=== PATIENT | female | born 1990 | race African-American/Black ===

== ENCOUNTER 2024-10-08 07:44 | Emergency (ER) | payer OTHER, SELFPAY ==
[2024-10-08] VITALS (10 sets, daily range): BP systolic 140–215; BP diastolic 79–119; BMI 24.2
[2024-10-08 08:20] LABS: % Basophils 0.4 % (0-2); % Eosinophils 0.6 % (0-6); % Immature Granulocytes 0.2 % (0-0.5); % Lymphocytes 27.2 % (20.5-51.1); % Monocytes 5.4 % (1.7-9.3); % Neutrophils 66.2 % (42.2-75.2); Absolute Eosinophils 0.1 10^3/uL (0-0.7); Absolute Lymphocytes 2.6 10^3/uL (1.2-3.4); Absolute Monocytes 0.5 10^3/uL (0.1-0.6); Absolute Neutrophils 6.3 10^3/uL (1.4-6.5); Hematocrit 36.9 % (37.0-47.0); Hemoglobin 12.7 g/dL (12.0-16.0); Mean Corp Hgb Conc. 34.4 g/dL (33.0-37.0); Mean Corpuscular Hgb 31.3 pg (27.0-31.0); Mean Corpuscular Volume 90.9 fL (81.0-99.0); Mean Platelet Volume 11.8 fL (7.4-10.4); Nucleated Red Blood Cells % 0 %; Platelet Count 248 10^3/uL (130-400); Red Blood Cell Count 4.06 10^6/uL (4.20-5.40); Red Cell Dist. Width 12.4 % (11.5-14.5); White Blood Cell Count 9.5 10^3/uL (4.8-10.8)
--- NOTE | 2024-10-08 08:22 | ED.GENMED ---
History of Present Illness
General
Chief Complaint: Blood Pressure Problem
Source: patient
Time Seen by Provider: 10/08/24 07:48
History of Present Illness
History of Present Illness:
34-year-old female presents emergency by ambulance for evaluation of tingling in her hands and feet, rapid breathing, feeling unwell. Symptoms began after having a difficult conversation at work. Patient does have a history of hypertension for
which she takes amlodipine. She took her medication yesterday but not this morning. She states she typically takes around 8 AM. Currently denies any chest pain, shortness of breath, abdominal pain or headache.
Past History
Past History
ED Past Medical History: None
ED Past Surgical History: Other (D. and C.)
Social History
Tobacco: Non-smoker
Phy Exam
Physical Exam
Physical Exam:
General: Awake, Alert, Oriented X3. No acute distress.
Vitals: Hypertensive
Head: Atraumatic
Eyes: Pupils equal, EOMI
Throat: Airway intact, no exudates
Neck: Trachea midline
Lungs: Clear and equal b/l
Heart: Regular rate, no murmurs
Abd: Soft, Nontender, No pulsatile mass
Neuro: Cranial nerves intact, muscle strength equal bilaterally, cerebellar exam normal
Skin: Warm, dry, no rash
Extremities: pulses equal b/l, no edema
Course
Orders/Labs/Results
Orders:
Orders
10/08/24 07:45
Electrocardiogram (*1) Urgent
Reason for Study: Hypertension, Benign
10/08/24 07:46
EKG- Treatment ONCE
10/08/24 08:03
Test Result ONCE
10/08/24 08:05
Complete Blood Count/With Diff Urgent
Comprehensive Metabolic Panel Urgent
HCG, Serum Qualitative Screen Urgent
10/08/24 08:18
Amlodipine [Norvasc] 10 mg PO NOW STA
10/08/24 11:42
Acetaminophen [Tylenol] 1,000 mg PO NOW STA
10/08/24 13:08
CT Head W/o Iv Contrast Urgent
Comment:
Reason For Exam: headache
10/08/24 13:40
Diphenhydramine [Benadryl] 25 mg IV NOW STA
Metoclopramide [Reglan] 10 mg IV NOW STA
Abnormal Lab Results
10/08/24
08:05
RBC 4.06 L 10^6/uL
(4.20-5.40)
Hct 36.9 L %
(37.0-47.0)
MCH 31.3 H pg
(27.0-31.0)
MPV 11.8 H fL
(7.4-10.4)
BUN 6 L mg/dl
(7-17)
10/08/24 08:05
10/08/24 08:05
Vital Signs
Initial and Last Documented VS:
Initial Vital Signs
BP
215/99
10/08/24 07:48
Last Documented Vital Signs
Temp Pulse Resp BP Pulse Ox
98.0 F 69 21 140/79 97
10/08/24 09:02 10/08/24 15:00 10/08/24 15:00 10/08/24 15:00 10/08/24 15:00
MDM/Problems Addressed
Differential Diagnosis Includes:
Control blood pressure, hyperventilating, tumor, bleed
MDM/Problems Addressed:
Patient presents with what sounds mostly like an anxiety attack followed by a headache. Blood pressure however was quite high and it has trended down after the administration of her normal hypertensive medication, amlodipine 10 mg. Workup here is
otherwise unremarkable. Because her headache was persistent a CT of the head was ordered which shows nothing acute. Patient ultimately determined to be stable for discharge and follow-up with her primary care provider
*Radiology
Radiology exam reviewed: radiology read reviewed
*EKG
Interpretation: normal
Heart Rate: 75
Rate: normal
Rhythm: sinus
[place]: normal axis
Interval: normal interval
QRS Pattern: normal QRS
Ischemia: no ischemia
*Critical Care Note
Total Time (30-74mins, 75-104mins- exclusive of procedures): Not Applicable
ED Attending Note
-
Portions of this chart may have been created with voice recognition software.� Occasional wrong word or��sound alike� substitutions may have occurred due to the inherent limitations of voice recognition software.
Discharge Plan
Departure
Patient Disposition: Home (Routine Discharge)
Date of Disposition: 10/08/24
Time of Disposition: 15:13
Patient with high blood pressure during this ER visit?: Yes
Condition: Good
Discharge Problem:
Hypertension, Headache
Instructions: High Blood Pressure (DC), Headaches in adults
Prescriptions:
No Action
None
Referrals:
Jordi Clemons DO [Family Provider] -
Stand Alone Forms: Return to Work
Activity Restrictions/Additional Instructions:
Please return for any worsening symptoms.
You may return at any time if you have further concerns.
Please follow up with your doctor at the first available appointment, preferably this week.
Thank you for choosing [facility].
Interventions
Interventions:
*Risk Screen - Suicide Last Done: 10/08/24 08:06
*General Assessment Last Done: 10/08/24 08:06
*Neglect/Abuse Screening Last Done: 10/08/24 08:06
*ED- Fall Risk Assessment Last Done: 10/08/24 08:06
*ED COVID-19 Vaccine History Last Done: 10/08/24 08:06
*Nursing Disposition Last Done: 10/08/24 15:22
ED- Cardiac Assessment Last Done: 10/08/24 08:06
ED- Neurological Assessment Last Done: 10/08/24 08:06
ED- Pulmonary Assessment Last Done: 10/08/24 08:06
Discharge Date and Time
Discharge Date/Time: 10/08/24 15:27
Print Language: UKRAINIAN
[2024-10-08 08:25] LABS: HCG, Serum Qualitative Screen Negative
[2024-10-08 08:28] LABS: ALT (SGPT) 17 U/L (0-35); AST (SGOT) 20 U/L (14-36); Albumin 4.6 g/dl (3.5-5.0); Alkaline Phosphatase 75 U/L (38-126); Blood Urea Nitrogen 6 mg/dl (7-17); Calcium 9.9 mg/dl (8.4-10.2); Carbon Dioxide 27 mmol/L (22-30); Chloride 103 mmol/L (98-107); Estimated Creatinine Clearance 103 ml/min; Glucose 97 mg/dl (70-99); Potassium 3.8 mmol/L (3.5-5.1); Sodium 139 mmol/L (135-145); Total Bilirubin 0.4 mg/dl (0.2-1.3); Total Protein 7.8 g/dl (6.3-8.2); eGFR > 60.00
[2024-10-08] MEDS: NORVASC 10 MG PO (08:53)
[2024-10-08] MEDS: TYLENOL 1000 MG PO (11:46)
[2024-10-08] MEDS: BENADRYL 25 MG IV (14:07)
[2024-10-08] MEDS: REGLAN 10 MG IV (14:07)
--- NOTE | 2024-10-08 15:19 | EDRN ---
IV removed without issues and intact. Bandage applied.
== END 2024-10-08 15:27 | disposition home or self-care (01) ==
LOC: EMR 07:44
PROVIDERS: EMERGENCY PHYSICIAN Emergency Medicine; FAMILY PHYSICIAN Family Medicine
DX: I10 Essential (primary) hypertension (principal); R51.9 Headache, unspecified; Z79.899 Other long term (current) drug therapy
CPT/HCPCS: 96374; 96375; 99284; 70450; 80053; 84703; 85025; 93005